=== PATIENT | male | born 1960 | race Caucasian/White ===

== ENCOUNTER 2016-11-27 16:40 | Emergency (ER) | payer MEDICARE, MEDICAID ==
--- NOTE | 2016-11-27 16:55 | ED Physician Chart ---
Chief Complaint/HPI - Patient Information Date Seen:: 11/27/16 Time Seen:: 16:40 Chief Complaint:: Bleeding from wound site in L foot. History of Present Illness:: Pt has chronic ulcer in L foot since 01/2016 with intermittent bleeding from wound site. Pt has been on antibiotic therapy for osteomyelitis. Pt was visited by home nurse at about 1 pm today. Pt was noticed to have bleedng from wound site which was stopped after fresh dressing was placed. Pt is on anticoagulation therapy on Xarelto. No fever. No N/V/D. No lightheadedness. No h/o recent injury or trauma to L foot. Pt has chronic L foot pain. Pt's primary reason to come to ER is for pain control. Pt states that he tolerated Dilaudid in the past without adverse reactions. Allergies:: Allergies Allergy/AdvReac Type Severity Reaction Status Date / Time morphine Allergy Verified 11/27/16 16:44 tobramycin Allergy Verified 11/27/16 16:44 vancomycin Allergy Verified 11/27/16 16:44 Vitals:: see Nurse Note. Historian:: Patient Family MD/PCP:: Dr. Cardenas LMP:: N/A Review:: Nurse's Note Reviewed Review of Systems - Review of Systems General/Constitutional: No fever, No chills, No weight loss, No weakness Skin: No bruising, Other (Chronic L foot ulcer, see HPI.) Head: No headache, No light-headedness Eyes: No loss of vision, No pain, No diplopia Neck: No neck pain, No swelling, No thyromegaly, No stiffness, No mass noted Cardio Vascular: No chest pain, No palpitations, No PND, No orthopnea, No edema Pulmonary: No SOB, No cough, No sputum, No wheezing GI: No nausea, No vomiting, No diarrhea, No pain, No melena, No hematochezia, No constipation, No hematemesis Musculoskeletal: Other (Chronic L foot pain, worse this past week.) Psychiatric: No prior psych history Hematopoietic: No bruising, No lymphadenopathy Allergic/Immuno: No urticaria, No angioedema Neurological: No syncope, No focal symptoms, No weakness, No paresthesia, No headache, No dizziness, No confusion Past Medical History - Past Medical History Past Medical History: HTN, DM, 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 Surgical History: other (Repeated L foot surgeries x 2 due to chronic ulcers/ wound over past year.) Psychiatricy History: None Medication: Reviewed Family Medical History - Family Member Mother Hx Family Hypertension: Yes Physical Exam - Physical Examination General/Constitutional: Awake, Well-developed, well-nourished (obese male), Alert, No distress, GCS 15, Non-toxic appearing Other Gen/Cons comments:: Breathes comfortably, speaks clearly, and interacts normally. Head: Atraumatic Eyes: Lids, conjuctiva normal, PERRL, EOMI Skin: Well hydrated, No lymphadenopathy ENMT: External ears, nose nl, Nasal exam nl, Oropharynx nl Neck: Nontender, Full ROM w/o pain, No nuchal rigidity, No stridor Respiratory: Nl effort/Exclusion, Clear to Auscultation, No Wheeze/Rhonchi/Rales Cardio Vascular: No murmur, gallop, rubs Other Cardio Vascular comments:: slightly irregular. Other Extremities comments:: L foot has clean dressing in place extending from ankle to distal aspect with all toes exposed. No blood leaking through. Pt can move all toes without difficulty. There is good distal capillary refill. No detectable motor/sensory/ vascular deficit. Pt does not want dressing to be removed for exam because he had dressing change earlier today and the bleeding has stopped. Neuro/Psych: Alert/oriented (oriented x 3), Judgement/insight normal, Mood normal, No focal deficits Labs/Radiology/EKG Results - Lab Results Results: Laboratory Tests 11/27/16 11/27/16 11/27/16 17:24 17:24 17:24 WBC 13.9 H RBC 3.85 L Hgb 8.4 L Hct 26.8 L MCV 69.5 L MCH 21.7 L MCHC Differential 31.3 RDW 16.6 Plt Count 568 H MPV 6.2 PT 16.5 H INR 1.55 H PTT (Actin FS) 37.0 Sodium 131 L Potassium 3.8 Chloride 97 L Carbon Dioxide 28.0 Anion Gap 9.8 BUN 12 Creatinine 0.8 Est GFR ( Amer) > 60.0 Est GFR (Non-Af Amer) > 60.0 BUN/Creatinine Ratio 15.0 Glucose 258 H Calcium 8.7 Total Bilirubin 0.5 AST 18 ALT 15 Alkaline Phosphatase 107 H Total Protein 8.3 Albumin 2.5 L Globulin 5.8 Albumin/Globulin Ratio 0.4 L ED Septic Shock - . Is Septic Shock (SBP<90, OR Lactate>4 mmol\L) present?: No Reassessment (Disposition) - Reassessment Reassessment:: 1757 Pt feels better. His heart rate was normalized to 91 with normal BP after pain is controlled. Remaining lab results just became available. Lab findings have been reviewed with pt. Pt requests to go home now and prefers to follow with PCP Dr. Cardenas tomorrow. His is his head inspector and center marker and is very familiar with pt 's condition and treatment. His Hb today is about what his usual range was. Pt did require repeat blood transfusion in the past when his Hb dropped much lower. Copies of lab results have been provided for the patient for his follow up with Dr. Cardenas tomorrow. Aftercare instructions have been given. His will drive him home. Reassessment Condition:: Improved - Diagnosis Diagnosis:: Chronic L foot ulcer with chronic pain and recurrent bleeding, on antibiotic therapy for osteomyelitis, stable. Chronic anemia that required repeated blood transfusion in the past, stable. - Aftercare/Follow up Instructions Aftercare/Follow-Up Instructions:: Refer to Discharge Instructions Notes:: Continue present care. Drowsiness precautions given with the use of Dilaudid as well as other opioid analgesics for chronic pain control. F/U with PCP Dr. Cardenas in one day for recheck with repeat lab studies: CBC, CMP. Return to ER immediately if condition worsens or if any further questions/ problems. Medication Prescribed:: None - Patient Disposition Discharge/Transfer:: Home Time:: 18:10 Condition at Disposition:: Stable, Improved ED Discharge Plan - Patient Disposition Instructions: Wound Infection, [id number] Accepting Physician: , Primary [Other]
[2016-11-27] MEDS ORDERED: HYDROmorphone 1 mg/mL 1mL Syr IVP STA (17:12)
[2016-11-27] MEDS ORDERED: HYDROmorphone 1 mg/mL 1mL Syr ONE (17:15)
[2016-11-27 17:38] LABS: HEMATOCRIT 26.8 % (39.0-49.0); HEMOGLOBIN 8.4 gm/dL (13.2-17.3); MEAN CELL VOLUME 69.5 fl (80-99); MEAN CORPUSCULAR HEMOGLOBIN 21.7 pg (26.0-30.0); MEAN CORPUSCULAR HGB CONC 31.3 pg (28.0-36.0); MEAN PLATELET VOLUME 6.2 fl; PLATELET COUNT 568 Th/cmm (150-400); RED BLOOD COUNT 3.85 Mil/cmm (4.30-5.70); RED CELL DISTRIBUTION WIDTH 16.6 % (11.5-20.0)
[2016-11-27 17:40] LABS: WHITE BLOOD COUNT 13.9 Th/cmm (4.8-10.8)
[2016-11-27 17:45] LABS: INR 1.55 (0.5-1.4); PROTHROMBIN TIME (TEST) 16.5 SECONDS (9.5-11.5)
[2016-11-27 17:48] LABS: ALB/GLOB RATIO 0.4 (1.0-1.8); ALKALINE PHOSPHATASE 107 U/L (34-104); ANION GAP 9.8 (7.0-16.0); BILIRUBIN,TOTAL 0.5 mg/dL (0.3-1.0); BUN - UREA NITROGEN 12 mg/dL (7-25); CALCIUM SERUM 8.7 mg/dL (8.6-10.3); CHLORIDE 97 mEq/L (98-107); CREATININE - SERUM 0.8 mg/dL (0.7-1.3); GLUCOSE 258 mg/dL (70-105); POTASSIUM SERUM 3.8 mEq/L (3.5-5.1); SGOT 18 U/L (13-39); SGPT/ALT 15 U/L (7-52); SODIUM SERUM 131 mEq/L (136-145)
[2016-11-27 18:11] LABS: BASOPHIL 2 % (0-3); EOSINOPHIL 3 % (0-5); HYPOCHROMIA 1+; MICROCYTOSIS 2+; NEUTROPHILS 77 % (40-80); PLATELET ESTIMATE INCREASED PLATELETS (NORMAL); PLATELET MORPHOLOGY NORMAL (NORMAL); TOTAL CELLS COUNTED 100
== END 2016-11-27 17:55 | disposition home or self-care (01) ==
LOC: ER 16:40
DX: E11.621 Type 2 diabetes mellitus with foot ulcer (principal); L97.529 Non-pressure chronic ulcer of other part of left foot with unspecified severity; D64.9 Anemia, unspecified; I10 Essential (primary) hypertension; Z86.718 Personal history of other venous thrombosis and embolism; Z88.6 Allergy status to analgesic agent; Z88.1 Allergy status to other antibiotic agents; Z98.890 Other specified postprocedural states
CPT/HCPCS: 36415-UA; 80053-TC; 83036-90; 85007-TC; 85027-TC; 85610-TC; 96374; J1170; Z7502